=== PATIENT | female | born 1945 | race Caucasian/White ===

== ENCOUNTER 2017-05-02 10:42 | Observation (INO) | payer MEDICARE, BC ==
[~2017-05-02] VITALS: Ht 157.5 cm; Wt 81.0 kg
[2017-05-02 10:44] VITALS: BP 172/70; PULSE 87; RESP 16; TEMP 98; O2SAT 98
--- NOTE | 2017-05-02 11:22 | RADRPT ---
EXAM DATE/TIME: 05/02/2017 11:12 [facility] COMPARISON: No previous studies available for comparison. INDICATIONS : Chest pain. Short of breath. MEDICAL HISTORY : None. SURGICAL HISTORY : None. ENCOUNTER: Initial ACUITY: 2 weeks PAIN SCORE: 3/10 LOCATION: middle chest FINDINGS: A single view of the chest demonstrates the lungs to be symmetrically aerated without evidence of mas s, infiltrate or effusion. The cardiomediastinal contours are unremarkable. Osseous structures are intact. CONCLUSION: No acute disease. Farrukh Rubalcava MD on May 02, 2017 at 11:21 Board Certified Radiologist. This report was verified electronically.
[2017-05-02 11:38] LABS: AUTOMATED NEUTROPHIL # 4.2 TH/MM3 (1.8-7.7); BASOPHIL % 0.3 % (0.0-2.0); EOSINOPHIL # 0.1 TH/MM3 (0-0.4); EOSINOPHIL % 2.4 % (0.0-4.0); HEMATOCRIT 32.2 % (35.0-46.0); LYMPH % 16.9 % (9.0-44.0); MEAN CELL VOLUME 81.7 FL (80.0-100.0); MEAN CORPUSCULAR HEMOGLOBIN 26.3 PG (27.0-34.0); MEAN CORPUSCULAR HGB CONC 32.2 % (32.0-36.0); MONO % 7.8 % (0.0-8.0); NEUT % 72.6 % (16.0-70.0); PLATELET COUNT 69 TH/MM3 (150-450); RED BLOOD COUNT 3.94 MIL/MM3 (4.00-5.30); RED CELL DISTRIBUTION WIDTH 15.6 % (11.6-17.2); WHITE BLOOD COUNT 5.7 TH/MM3 (4.0-11.0)
[2017-05-02 11:44] LABS: HEMO FLAGS AUTO DIFF
[2017-05-02 11:52] LABS: ANION GAP 6 MEQ/L (5-15); BLOOD UREA NITROGEN 17 MG/DL (7-18); CHLORIDE 107 MEQ/L (98-107); GLOMERULAR FILTRATION RATE 67 ML/MIN (>89); POTASSIUM 3.9 MEQ/L (3.5-5.1); SODIUM (NA) 141 MEQ/L (136-145)
[2017-05-02 12:01] LABS: CREATINE KINASE 65 U/L (26-192)
[2017-05-02 12:29] LABS: BANDS 2 % (0-6); BASOPHILS 1 % (0-2); MYELOCYTES 1 % (0-0); NEUTROPHIL # MANUAL DIFF 4.3 TH/MM3 (1.8-7.7); POLYS (SEG NEUTROPHILS) 72 % (16-70); WBC DIFF SAMPLE 100
[2017-05-02 12:30] LABS: PLATELET ESTIMATE SMEAR LOW (NORMAL); PLATELET MORPHOLOGY NORMAL (NORMAL); SCAN/DIFF FINAL DIFF MANUAL
[2017-05-02 14:30] VITALS: BP 164/74; PULSE 78; RESP 16; O2SAT 98; O2SAT 99
--- NOTE | 2017-05-02 14:34 | PD ---
HPI Chief Complaint: Chest Pain Time Seen by Provider: 14:28 Travel History International Travel<30 days: No Contact w/Intl Traveler<30days: No Traveled to known affect area: No History of Present Illness HPI 71- year old female with a PMHx of cirrhosis of the liver non-alcoholic presents to the ED complaining of chest pain. The patient is visiting from [place] and reports that she was seen by her PCP about 3 weeks ago due to shortness of breath. At that time the patient's PCP ordered an ECHO. Per the patient she received a phone call on Saturday with the results of the ECHO showing enlargement of the right side of her heart. The patient reports her chest pain started around 11pm last night with radiation between her shoulder blades. She describes the pain as pressure on her chest. The patient is also complaining of epigastric pain. She states she occasionally has some shortness of breath, but denies any nausea, vomiting, diarrhea, or headaches. The patient denies taking anything for the pain and denies taking any aspirin. She reports a rash that she had for the past two weeks that started on the left side of her chest, and is spreading on her left arm, buttock, and right arm. She denies any changes in soaps, laundry detergents, changes in medication, or contact with anything unusual. She denies any smoking, alcohol, or drug use. PFSH Past Medical History ?: Not Past Surgical History Hysterectomy: Yes Social History Alcohol Use: No Tobacco Use: No Substance Use: No Allergies-Medications (Allergen,Severity, Reaction): Coded Allergies: Penicillins (Verified Allergy, Severe, Anaphylaxis, 05/02/17) Reported Meds & Prescriptions Reported Meds & Active Scripts Active Reported Paxil (Paroxetine HCl) 20 Mg Tablet 1 Tab PO DAILY Prilosec (Omeprazole Magnesium) 20 Mg Tab 1 Tab PO DAILY Review of Systems General / Constitutional: No: Fever, Chills, Weight Gain, Weight Loss, Other Eyes: No: Diploplia, Blurred Vision, Photophobia, Drainage, Redness, Foreign Body Sensation, Pain, Tearing, Blind Spots, Visual changes, Blindness, Other HENT: No: Headaches, Vertigo, Lightheadedness, Sore Throat, Rhinitis, Rhinorrhea, Congestion, Nosebleed, Neck Stiffness, Neck Pain, Masses, Gingival Bleeding, Dental Difficulties, Ear Discharge, Earache, Other Cardiovascular: Positive: Chest Pain or Discomfort, No: Palpitations, Irregular Rhythm, Tachycardia, Diaphoresis, Syncope, Dyspnea on exertion, Varicosities, Edema, Cyanosis, Varicosities, Phlebitis, Claudication, Other Respiratory: Positive: Shortness of Breath, No: Cough, Wheezing, Sneezing, Orthopnea, Hemoptysis, Stridor, Night Sweats, Pleuritic Pain, Other Gastrointestinal: Positive: Abdominal Pain, No: Nausea, Vomiting, Diarrhea, Hematemesis, Hematochezia, Constipation, Changes in Bowel Habits, Indigestion, Dysphagia, Loss of Appetite, Other Genitourinary: No: Urgency, Frequency, Dysuria, Nocturia, Hematuria, Decreased Urinary Output, Oliguria, Hesitancy, Dribbling, Incontinence, Pelvic Pain, Flank Pain, Dyspareunia, Discharge, Dysmenorrhea, Menorrhagia, Metorrhagia, Vaginal Bleeding, Other Musculoskeletal: No: Myalgias, Arthralgias, Limited ROM, Weakness, Cramping, Edema, Pain, Atrophy, Other Skin: Positive Rash, No Itching, No Dryness, No Lumps, No Hives, No Change in Pigmentation, No Change in nails, No Alopecia, No Lesions, No Breast Lumps, No Breast Tenderness, No Breast Swelling, No Other Neurologic: No: Weakness, Dizziness, Syncope, Focal Abnormalities, Coordination Problem, Tremor, Ataxia, Headache, Change in Mentation, Slurred Speech, Paresthesia, Incontinence, Seizures, Sensory Disturbance, Other Psychiatric: No: Anxiety, Depression, Suicidal Ideations, Disorder of Thought, Mood Disorder, Substance Abuse, Homicidal Ideation, Other Endocrine: No: Heat Intolerance, Cold Intolerance, Polyuria, Polydipsia, Other Hematologic/Lymphatic: No: Easy Bruising, Lymph Node Enlargement, Other Physical Exam Narrative GENERAL: SKIN: Rash noted on left chest towards back, left buttock, and right arm. Warm and dry. HEAD: Atraumatic. Normocephalic. EYES: Pupils equal and round. No scleral icterus. No injection or drainage. ENT: No nasal bleeding or discharge. Mucous membranes pink and moist. Tongue is midline. No uvula deviation. NECK: Trachea midline. No JVD. CARDIOVASCULAR: Regular rate and rhythm. No murmurs, S3, S4. RESPIRATORY: No accessory muscle use. Clear to auscultation. Breath sounds equal bilaterally. No wheezes, rales, or rhonchi. GASTROINTESTINAL: Mildy tender to palpation in epigastric area. Abdomen soft, nondistended. Hepatic and splenic margins not palpable. MUSCULOSKELETAL: Extremities without clubbing, cyanosis, or edema. No obvious deformities. Full range of motion of the upper and lower extremities bilaterally. 2+ pulses bilaterally. NEUROLOGICAL: Awake and alert. No obvious cranial nerve deficits. Motor grossly within normal limits. Five out of 5 muscle strength in the arms and legs. Normal speech. PSYCHIATRIC: Appropriate mood and affect; insight and judgment normal. Data Data Last Documented VS Vital Signs Date Time Temp Pulse Resp B/P Pulse Ox O2 Delivery O2 Flow Rate FiO2 05/02/17 14:30 98 Room Air 05/02/17 10:44 98.0 87 16 172/70 Orders Electrocardiogram (05/02/17 10:56) Complete Blood Count With Diff (05/02/17 10:56) Basic Metabolic Panel (Bmp) (05/02/17 10:56) Ckmb (Isoenzyme) Profile (05/02/17 10:56) Troponin I (05/02/17 10:56) Chest, Single Ap (05/02/17 10:56) Iv Access Insert/Monitor (05/02/17 10:56) Ecg Monitoring (05/02/17 10:56) Oxygen Administration (05/02/17 10:56) Oximetry (05/02/17 10:56) Lipase (05/02/17 14:25) Ckmb (Isoenzyme) Profile (05/02/17 14:27) Troponin I (05/02/17 14:27) Hepatic Functional Panel (05/02/17 14:39) Aspirin (Aspirin) (05/02/17 14:45) Famotidine Inj (Pepcid Inj) (05/02/17 14:45) Electrocardiogram (05/02/17 ) Ct Abd/Pel W Iv Contrast(Rout) (05/02/17 ) Iohexol 350 Inj (Omnipaque 350 Inj) (05/02/17 16:39) Admit Order (Ed Use Only) (05/02/17 17:37) Labs Laboratory Tests Test 05/02/17 05/02/17 11:17 14:45 White Blood Count 5.7 TH/MM3 Red Blood Count 3.94 MIL/MM3 Hemoglobin 10.4 GM/DL Hematocrit 32.2 % Mean Corpuscular Volume 81.7 FL Mean Corpuscular Hemoglobin 26.3 PG Mean Corpuscular Hemoglobin 32.2 % Concent Red Cell Distribution Width 15.6 % Platelet Count 69 TH/MM3 Mean Platelet Volume 10.5 FL Neutrophils (%) (Auto) 72.6 % Lymphocytes (%) (Auto) 16.9 % Monocytes (%) (Auto) 7.8 % Eosinophils (%) (Auto) 2.4 % Basophils (%) (Auto) 0.3 % Neutrophils # (Auto) 4.2 TH/MM3 Lymphocytes # (Auto) 1.0 TH/MM3 Monocytes # (Auto) 0.4 TH/MM3 Eosinophils # (Auto) 0.1 TH/MM3 Basophils # (Auto) 0.0 TH/MM3 CBC Comment AUTO DIFF Differential Total Cells 100 Counted Neutrophils % (Manual) 72 % Band Neutrophils % 2 % Lymphocytes % 17 % Monocytes % 7 % Basophils % 1 % Neutrophils # (Manual) 4.3 TH/MM3 Myelocytes 1 % Differential Comment FINAL DIFF MANUAL Platelet Estimate LOW Platelet Morphology Comment NORMAL Red Cell Morphology Comment NORMAL Sodium Level 141 MEQ/L Potassium Level 3.9 MEQ/L Chloride Level 107 MEQ/L Carbon Dioxide Level 28.0 MEQ/L Anion Gap 6 MEQ/L Blood Urea Nitrogen 17 MG/DL Creatinine 0.84 MG/DL Estimat Glomerular Filtration 67 ML/MIN Rate Random Glucose 127 MG/DL Calcium Level 8.7 MG/DL Total Bilirubin 0.4 MG/DL Direct Bilirubin 0.1 MG/DL Indirect Bilirubin 0.3 MG/DL Aspartate Amino Transf 58 U/L (AST/SGOT) Alanine Aminotransferase 50 U/L (ALT/SGPT) Alkaline Phosphatase 75 U/L Total Creatine Kinase 65 U/L 82 U/L Troponin I LESS THAN 0.02 LESS THAN 0.02 NG/ML NG/ML Total Protein 7.3 GM/DL Albumin 3.6 GM/DL Lipase 254 U/L [facility] Medical Decision Making Medical Screen Exam Complete: Yes Emergency Medical Condition: Yes Medical Record Reviewed: Yes Interpretation(s) CBC & BMP Diagram 05/02/17 11:17 Troponin and CKMB negative. LFTs and lipase within normal limits. Last Impressions Chest X-Ray 05/02/17 1056 Signed Impressions: Service Date/Time: April 11:12 - CONCLUSION: No acute disease. Farrukh Rubalcava MD Abdomen/Pelvis CT 05/02/17 0000 Signed Impressions: Service Date/Time: April 16:35 - CONCLUSION: 1. Fatty infiltration of the liver with findings most characteristic of mild cirrhosis. 2. Mild to moderate diverticulosis with no inflammatory change. 3. Status post cholecystectomy 4. The spleen is at the upper limits of normal in size. Goyo Perez MD EKG shows sinus rhythm with no sign of acute ischemia or arrhythmia noted by me and attending. Differential Diagnosis Chest pain versus a typical chest pain versus UT versus an STEMI versus pancreatitis versus gastritis versus shingles versus pruritic rash Narrative Course 71-year-old female that presents to the ED for evaluation of chest pain. Patient was properly examined and was found to have signs and symptoms of unclear etiology. Patient does have epigastric pain. Patient apparently had an EGD done before coming to [place]. Per patient she was told that everything looked fine. She had an ultrasound for the heart that was negative. She was told that she will likely need a stress test in 3 weeks at this time she did not have any chest pain in the chest but does develop overnight. Per patient the pain is in the epigastric area. She does have risk factors for heart disease. She denies any heart disease on herself. She had initial protocols order injury sheet and they were all essentially negative. My attending Dr. Tracy evaluated the patient with me and she recommends adding LFTs and lipase and CT and if that is negative patient could be admitted to the chest pain center for further evaluation and to rule out ACS. Labs and imaging came back and were essentially unremarkable. Case again discussed with my attending Dr. Tracy who is in agreement with admission to the chest pain center for further workup of the chest pain. Directed this rash appears to be pruritic and likely more related to an allergic reaction. She's been staying and multiple hotels and the pain is not reproducible in any of these areas without rashes. Could be from insect bites. Patient was given Benadryl for her symptoms. At 17:55 I was asked by Osmin MOSQUERA for chest pain center to get records of ECHO cardiogram. I have asked environmental services floor tech to see if we can get records of this. Per patient she had it done by Dr Gnea Wiseman ( her PCP) and phone number is . Diagnosis Primary Impression: Chest pain in adult Additional Impression: Pruritic rash Admitting Information Admitting Physician Requests: Observation Lorne Stahl May 02, 2017 14:34
[2017-05-02] MEDS ORDERED: FAMOTIDINE 20 MG/2 ML VIAL IV PUSH ONE (14:45)
[2017-05-02] MEDS ORDERED: PRIL20TA2 PO (14:45)
[2017-05-02] MEDS ORDERED: ASPIRIN 325 MG TAB PO ONE (14:45)
[2017-05-02] MEDS ORDERED: PAXI20TA10 PO (14:45)
[2017-05-02 15:23] LABS: INDIRECT BILIRUBIN 0.3 MG/DL (0.0-0.8); TOTAL BILIRUBIN ADULT 0.4 MG/DL (0.2-1.0)
[2017-05-02 16:08] LABS: CREATINE KINASE 82 U/L (26-192)
[2017-05-02] MEDS ORDERED: IOHEXOL 350 MG/ML 10 ML VIAL (for RAD DIAG) IV ONE (16:39)
--- NOTE | 2017-05-02 17:20 | RADRPT ---
EXAM DATE/TIME: 05/02/2017 16:35 [facility] COMPARISON: No previous studies available for comparison. INDICATIONS : Epigastric pain for one week. IV CONTRAST: 67 cc Omnipaque 350 (iohexol) IV ORAL CONTRAST: No oral contrast ingested. RADIATION DOSE: 19.75 CTDIvol (mGy) MEDICAL HISTORY : Cirrhosis. SURGICAL HISTORY : Hysterectomy. Cholecystectomy. ENCOUNTER: Initial ACUITY: 1 week PAIN SCALE: 5/10 LOCATION: Bilateral upper quadrant TECHNIQUE: Volumetric scanning of the abdomen and pelvis was performed. Using automated exposure control and ad justment of the mA and/or kV according to patient size, radiation dose was kept as low as reasonably achievable to obtain optimal diagnostic quality images. DICOM format image data is available electro nically for review and comparison. FINDINGS: LOWER LUNGS: The visualized lower lungs are clear. LIVER: Homogeneous density without lesion. There is no dilation of the biliary tree. The patient status pos t cholecystectomy. There is mild lobulation of the outer contour of the liver. There is mild hepatic steatosis. SPLEEN: Limits of normal in size with no ascites. There is no focal lesion. PANCREAS: Within normal limits. KIDNEYS: Normal in size and shape. There is no mass, stone or hydronephrosis. ADRENAL GLANDS: Within normal limits. VASCULAR: There is no aortic aneurysm. BOWEL/MESENTERY: The stomach, small bowel, and colon demonstrate no acute abnormality. There is no free intraperitone al air or fluid. There are multiple diverticuli greatest in the sigmoid colon with no focal wall thic kening or inflammatory change. ABDOMINAL WALL: Within normal limits. RETROPERITONEUM: There is no lymphadenopathy. BLADDER: No wall thickening or mass. REPRODUCTIVE: Within normal limits. INGUINAL: There is no lymphadenopathy or hernia. MUSCULOSKELETAL: Within normal limits for patient age. CONCLUSION: 1. Fatty infiltration of the liver with findings most characteristic of mild cirrhosis. 2. Mild to moderate diverticulosis with no inflammatory change. 3. Status post cholecystectomy 4. The spleen is at the upper limits of normal in size. Goyo Perez MD on May 02, 2017 at 17:17 Board Certified Radiologist. This report was verified electronically.
[2017-05-02] MEDS ORDERED: SODIUM CHLORIDE 0.9% FLUSH 10 ML FLUSH IV FLUSH PRN (17:45)
[2017-05-02] MEDS ORDERED: diphenhydrAMINE HCL 50 MG/ML VIAL IV PUSH ONE (17:45)
[2017-05-02] MEDS ORDERED: ACETAMINOPHEN 500 MG CPLT PO PRN (17:45)
[2017-05-02 18:00] VITALS: BP 124/60; PULSE 78; RESP 16; O2SAT 98
[2017-05-02 18:42] VITALS: BP 127/78
[2017-05-02 18:49] VITALS: BP 137/63; PULSE 69; RESP 16; TEMP 98.2; O2SAT 100
[2017-05-02 20:50] VITALS: PULSE 76
[2017-05-02] MEDS: SODIUM CHLORIDE 0.9% FLUSH 10 ML FLUSH IV FLUSH SCH (21:28)
[2017-05-02 22:07] LABS: CREATINE KINASE 69 U/L (26-192)
[2017-05-02] MEDS ORDERED: diphenhydrAMINE HCL 25 MG CAP PO ONE (22:15)
[2017-05-02] MEDS: HYDROCORTISONE 1% CREAM 30 GM TOPICAL SCH (23:54)
[2017-05-03] VITALS (8 sets, daily range): BP systolic 107–121; BP diastolic 57–58; PULSE 68–77; RESP 16–18; TEMP 97.9–98.2; O2SAT 94–96
[2017-05-03] MEDS ORDERED: diphenhydrAMINE HCL 25 MG CAP PO PRN
--- NOTE | 2017-05-03 08:17 | HHI.DCPOC ---
Discharge Care Plan Diagnosis: (1) Abdominal pain Goals to Promote Your Health * To prevent worsening of your condition and complications * To maintain your health at the optimal level Directions to Meet Your Goals Take your medications as prescribed Follow your dietary instruction Follow activity as directed Keep your appointments as scheduled Take your immunizations and boosters as scheduled If your symptoms worsen call your PCP, if no PCP go to Urgent Care Center or Emergency Room Smoking is Dangerous to Your Health. Avoid second hand smoke Call the 24-hour hour crisis hotline for domestic abuse at Segundo Graham May 03, 2017 08:17
[2017-05-03] MEDS: HYDROCORTISONE 1% CREAM 30 GM TOPICAL SCH (08:31)
[2017-05-03] MEDS: SODIUM CHLORIDE 0.9% FLUSH 10 ML FLUSH IV FLUSH SCH (08:31)
--- NOTE | 2017-05-03 09:48 | HHI.HP ---
HPI Primary Care Physician Non-Staff Chief Complaint Chest pain History of Present Illness This is a 71-year-old female that presents to ED with a weight of chest pain that she states chest pain she points to her epigastric region. States is been going on for a month. She is here on medication for [place]. She started a workup for this discomfort while in [place]. She has had endoscopy that she states was unremarkable. She had an echo and states that she was just given the results of that a few days ago. She states that her doctor told her she had an enlarged right ventricle and advised him to go to the ED. She presents to the ED because her doctor told her to. Her epigastric discomfort has not changed. She has not been vomiting. No diarrhea or constipation. Denies blood in stool. Denies chest discomforts. Patient has history of a nonalcoholic cirrhosis and has had this for 15 years. Also history of chronic thrombocytopenia. Review of Systems General: Patient denies fevers, chills recent, and recent travel HEENT: Patient denies headache, sore throat, difficulty swallowing. Cardiovascular: Denies chest discomfort. Denies sensation of heart beating rapidly or irregularly. No syncope. Respiratory: Denies shortness of breath or inspirational chest discomfort. Denies coughing wheezing or hemoptysis. GI: Complains of an epigastric discomfort for one month. Found nothing to bring on the discomfort. Nothing to worsen or improve it. Patient denies nausea, vomiting, diarrhea, bloody stools. Musculoskeletal: Patient denies joint pain or edema. Denies calf pain or edema. Neurovascular: Patient denies numbness, tingling, weakness in extremities. Denies headache. Endocrine: Denies polyuria and polydipsia. Hematologic: Denies easy bruising. Skin: Denies rash or itching. Past Family Social History Allergies: Coded Allergies: Penicillins (Verified Allergy, Severe, Anaphylaxis, 05/02/17) Past Medical History Nonalcoholic cirrhosis. GERD. Denies hypertension, diabetes, CAD, and hyperlipidemia. Lifetime nonsmoker. Past Surgical History Had recent endoscopy that she states is unremarkable. Also had hysterectomy. Reported Medications Reported Meds & Active Scripts Active Reported Paxil (Paroxetine HCl) 20 Mg Tablet 1 Tab PO DAILY Prilosec (Omeprazole Magnesium) 20 Mg Tab 1 Tab PO DAILY Active Ordered Medications Current Medications Medications (Trade) Dose Ordered Sig/Pratibha Route Start Time Stop Time Status Last Admin (NS Flush) 2 ml UNSCH PRN IV FLUSH 05/02/17 17:45 (NS Flush) 2 ml BID IV FLUSH 05/02/17 21:00 05/03/17 08:31 (Tylenol) 500 mg Q4H PRN PO 05/02/17 17:45 (Benadryl) 25 mg Q6H PRN PO 05/03/17 00:00 (Hydrocortisone 1% Cream) APPLY TO RASH TID TOPICAL 05/03/17 00:00 05/03/17 08:31 Family History States that her mother had at age 90 of congestive heart failure but otherwise no one in the family has cardiac history. Social History Patient is a lifetime nonsmoker. Denies alcohol or illicit drugs. Physical Exam Vital Signs Vital Signs Date Time Temp Pulse Resp B/P Pulse Ox O2 Delivery O2 Flow Rate FiO2 05/03/17 08:22 96 21 05/03/17 07:41 97.9 72 16 121/58 96 05/03/17 07:30 71 05/03/17 06:41 98.0 75 18 121/57 94 05/03/17 06:15 96 05/03/17 04:05 68 05/03/17 01:03 98.2 77 18 107/57 96 05/03/17 00:05 73 05/02/17 20:50 76 05/02/17 18:49 98.2 69 16 137/63 100 05/02/17 18:42 74 16 127/78 99 05/02/17 18:00 78 16 124/60 98 Room Air 05/02/17 14:30 98 Room Air 05/02/17 14:30 98 Room Air 05/02/17 14:30 78 16 164/74 99 Room Air 05/02/17 14:30 Room Air 05/02/17 10:44 98.0 87 16 172/70 98 Laboratory Laboratory Tests Test 05/02/17 05/02/17 05/02/17 05/02/17 11:17 14:45 18:00 21:20 White Blood Count 5.7 Red Blood Count 3.94 Hemoglobin 10.4 Hematocrit 32.2 Mean Corpuscular Volume 81.7 Mean Corpuscular Hemoglobin 26.3 Mean Corpuscular Hemoglobin 32.2 Concent Red Cell Distribution Width 15.6 Platelet Count 69 Mean Platelet Volume 10.5 Neutrophils (%) (Auto) 72.6 Lymphocytes (%) (Auto) 16.9 Monocytes (%) (Auto) 7.8 Eosinophils (%) (Auto) 2.4 Basophils (%) (Auto) 0.3 Neutrophils # (Auto) 4.2 Lymphocytes # (Auto) 1.0 Monocytes # (Auto) 0.4 Eosinophils # (Auto) 0.1 Basophils # (Auto) 0.0 CBC Comment AUTO DIFF Differential Total Cells 100 Counted Neutrophils % (Manual) 72 Band Neutrophils % 2 Lymphocytes % 17 Monocytes % 7 Basophils % 1 Neutrophils # (Manual) 4.3 Myelocytes 1 Differential Comment FINAL DIFF MANUAL Platelet Estimate LOW Platelet Morphology Comment NORMAL Red Cell Morphology Comment NORMAL Sodium Level 141 Potassium Level 3.9 Chloride Level 107 Carbon Dioxide Level 28.0 Anion Gap 6 Blood Urea Nitrogen 17 Creatinine 0.84 Estimat Glomerular Filtration 67 Rate Random Glucose 127 Calcium Level 8.7 Total Bilirubin 0.4 Direct Bilirubin 0.1 Indirect Bilirubin 0.3 Aspartate Amino Transf 58 (AST/SGOT) Alanine Aminotransferase 50 (ALT/SGPT) Alkaline Phosphatase 75 Total Creatine Kinase 65 82 62 69 Troponin I LESS THAN 0.02 LESS THAN 0.02 0.02 LESS THAN 0.02 Total Protein 7.3 Albumin 3.6 Lipase 254 Result Diagram: 05/02/17 1117 05/02/17 1117 Imaging Last 48 hours Impressions Chest X-Ray 05/02/17 1056 Signed Impressions: Service Date/Time: April 11:12 - CONCLUSION: No acute disease. Farrukh Rubalcava MD Abdomen/Pelvis CT 05/02/17 0000 Signed Impressions: Service Date/Time: April 16:35 - CONCLUSION: 1. Fatty infiltration of the liver with findings most characteristic of mild cirrhosis. 2. Mild to moderate diverticulosis with no inflammatory change. 3. Status post cholecystectomy 4. The spleen is at the upper limits of normal in size. Goyo Perez MD Course EKGs are sinus rhythm without significant ST segment depressions or elevations. Assessment and Plan Assessment and Plan * Abdominal pain: Patient did state chest pain but points to the abdomen to indicate where the discomfort is located. This has been going on for a month. She has started a workup for this in [place] and will continue it there as well. She seen by Dr. Nilo Reed of cardiology in the chest pain center and her complaints are found to be noncardiac and will be discharged home at this time with instructions to continue her current medications and follow-up with her primary care physician. * Stated history of cirrhosis: Continue follow-up with her physician. * GERD: Continue her medication. Patient is stable at this time. She is agreeable to this plan. Segundo Graham May 03, 2017 09:48
--- NOTE | 2017-05-03 13:55 | EKG ---
Date Performed: 05/02/2017 Time Performed: 15:55:02 PTAGE: 71 years EKG: Sinus rhythm NORMAL ECG PREVIOUS TRACING : 05/02/2017 11.01 Since previous tracing, no significant change noted DOCTOR: Nilo Reed Interpretating Date/Time 05/03/2017 13:53:38
--- NOTE | 2017-05-03 13:56 | EKG ---
Date Performed: 05/02/2017 Time Performed: 18:16:23 PTAGE: 71 years EKG: Sinus rhythm NORMAL ECG PREVIOUS TRACING : 05/02/2017 15.55 Since previous tracing, no significant change noted DOCTOR: Nilo Reed Interpretating Date/Time 05/03/2017 13:55:14
--- NOTE | 2017-05-03 13:57 | EKG ---
Date Performed: 05/02/2017 Time Performed: 21:22:54 PTAGE: 71 years EKG: Sinus rhythm NORMAL ECG PREVIOUS TRACING : 05/02/2017 18.16 Since previous tracing, no significant change noted DOCTOR: Nilo Reed Interpretating Date/Time 05/03/2017 13:56:29
--- NOTE | 2017-05-03 14:00 | EKG ---
Date Performed: 05/02/2017 Time Performed: 11:01:52 PTAGE: 71 years EKG: Sinus rhythm POSSIBLE RIGHT VENTRICULAR CONDUCTION DELAY BORDERLINE ECG NO PREVIOUS TRACING DOCTOR: Nilo Reed Interpretating Date/Time 05/03/2017 13:57:46
== END 2017-05-03 10:22 | disposition home or self-care (01) ==
LOC: NEPE 10:42 → NEDA 17:38 → NEPHCDU 18:59
DX: R07.89 Other chest pain (principal); K74.60 Unspecified cirrhosis of liver; K21.9 Gastro-esophageal reflux disease without esophagitis; L29.9 Pruritus, unspecified; I51.7 Cardiomegaly; K76.0 Fatty (change of) liver, not elsewhere classified; K57.90 Diverticulosis of intestine, part unspecified, without perforation or abscess without bleeding; Z79.899 Other long term (current) drug therapy; R10.13 Epigastric pain
CPT/HCPCS: 71010; 74177; 80048; 80076; 82550; 83690; 84484; 85007; 85027; 93005; 96374; 96375; 99285; G0378; J1200; Q9967